=== PATIENT | female | born 1935 | race Caucasian/White ===

== ENCOUNTER 2020-06-13 23:25 | Inpatient (IN) ==
[2020-06-13] MEDS ORDERED: Isovue-370 500 ML BOTTLE IVP ONE (23:39)
[2020-06-14 00:41] LABS: Basophils % 0.2 %; Hematocrit 36.6 % (35.3-44.9); Hemoglobin 12.2 g/dL (11.5-15.4); Immature Granulocytes % 0.4 % (0-4); Lymphocytes % 7.7 %; Mean Corpuscular HGB Conc 33.3 g/dL (31.6-35.5); Mean Corpuscular Hemoglobin 26.9 pg (28.0-33.3); Mean Corpuscular Volume 80.8 fL (83.0-100.0); Mean Platelet Volume 11.7 fL (9.4-12.4); Monocytes # 1.5 K/mcL (0.0-1.3); Monocytes % 11.1 %; Neutrophils # 10.7 K/mcL (1.6-8.9); Platelet Count 286 K/mcL (140-400); Red Blood Count 4.53 M/mcL (3.82-4.97); Red Cell Distribution Width 13.9 % (11.5-14.5); Segmented Neutrophils % 80.6 %; White Blood Count 13.3 K/mcL (4.3-11.1)
[2020-06-14 00:42] LABS: Bacteria,Urine Few per hpf (None-Few); Bilirubin,Urine Negative (Negative); Blood,Urine Moderate (Negative); Clarity,Urine Clear (Clear); Color,Urine Yellow (Yellow); Glucose,Urine (UA) Normal (Normal); Ketones,Urine 20 mg/dL (Negative); Leukocyte Esterase,Urine Small (Negative); Mucus,Urine Few per lpf (None-Few); Nitrite,Urine Negative (Negative); PH,Urine 5.5 pH Units (5.0-8.0); Protein,Urine Trace mg/dL (Neg-Trace); RBC,Urine 30-50 per hpf (0-3); Specific Gravity,Urine 1.027 (1.010-1.025); Squamous Epithelial Cell,Urine Few per hpf (None-Few)
[2020-06-14 01:04] LABS: Alanine Aminotransferase 13 Units/L (7-52); Albumin 3.4 g/dL (3.5-5.7); Albumin/Globulin Ratio 0.8 (1.1-2.2); Alkaline Phosphatase 103 Units/L (34-104); Aspartate Amino Transferase 18 Units/L (13-39); BUN/Creatinine Ratio 33 (6-26); Bilirubin,Direct 0.2 mg/dL (0.0-0.2); Bilirubin,Indirect 0.6 mg/dL (0.0-1.0); Bilirubin,Total 0.8 mg/dL (0.3-1.0); Blood Urea Nitrogen 28 mg/dL (8-23); Calcium 9.2 mg/dL (8.6-10.3); Carbon Dioxide 23 mEq/L (23-29); Chloride 102 mEq/L (98-107); Globulin 4.4 g/dL (2.4-3.5); Glucose 125 mg/dL (70-105); Lipase 21 Units/L (11-82); Osmolality,Calculated 297 (280-300); Potassium 3.5 mEq/L (3.5-5.1); Sodium 140 mEq/L (136-145); Total Protein 7.8 g/dL (6.4-8.9); Troponin I < 0.03 ng/mL (< 0.04); eGFR For African Americans > 60 (> 60); eGFR For Non-African Americans > 60 (> 60)
[2020-06-14] MEDS ORDERED: cefTRIAXone 1,000 MG in 0.9 % Sodium Chloride Mini Bag 100 ML IVPB ONE (01:05)
[2020-06-14] MEDS ORDERED: 0.9 % Sodium Chloride 1,000 ML IVC ONE (01:59)
[2020-06-14] MEDS ORDERED: Naloxone 0.4 MG/ML INJ IVP PRN (04:17)
[2020-06-14] MEDS ORDERED: Ondansetron 4 MG/2 ML VIAL IVP PRN (04:17)
[2020-06-14] MEDS ORDERED: 0.9 % Sodium Chloride 1,000 ML IVC SCH (04:30)
[2020-06-14] MEDS ORDERED: Albuterol 2.5 MG/3 ML NEBULIZER IH PRN (11:33)
[2020-06-14] MEDS: Aspirin Enteric Coated 81 MG Tablet PO SCH (12:35)
[2020-06-14] MEDS ORDERED: Haloperidol Lactate 5 MG/ML VIAL IM ONE (14:01)
[2020-06-14] MEDS: Pregabalin 75 MG CAPSULE PO SCH ×2 (16:05→21:46)
[2020-06-15] MEDS: Folic Acid 1 MG TABLET PO SCH (08:06)
[2020-06-15] MEDS: Aspirin Enteric Coated 81 MG Tablet PO SCH (08:06)
[2020-06-15] MEDS: Pregabalin 75 MG CAPSULE PO SCH ×4 (08:07→20:41)
[2020-06-15 08:58] LABS: Mean Corpuscular HGB Conc 32.4 g/dL (31.6-35.5); Mean Corpuscular Hemoglobin 26.8 pg (28.0-33.3); Mean Corpuscular Volume 82.8 fL (83.0-100.0); Mean Platelet Volume 10.8 fL (9.4-12.4); Platelet Count 260 K/mcL (140-400); Red Blood Count 4.47 M/mcL (3.82-4.97); Red Cell Distribution Width 14.2 % (11.5-14.5); White Blood Count 8.6 K/mcL (4.3-11.1)
[2020-06-15] MEDS ORDERED: cefTRIAXone 1,000 MG in 0.9 % Sodium Chloride Mini Bag 100 ML IVPB SCH (09:00)
[2020-06-15] MEDS ORDERED: *HR* Metoprolol 5 MG/5 ML VIAL IVP ONE (09:09)
[2020-06-15 09:16] LABS: BUN/Creatinine Ratio 27 (6-26); Blood Urea Nitrogen 20 mg/dL (8-23); Calcium 8.9 mg/dL (8.6-10.3); Carbon Dioxide 25 mEq/L (23-29); Chloride 107 mEq/L (98-107); Glucose 95 mg/dL (70-105); Magnesium 1.8 mg/dL (1.6-2.6); Osmolality,Calculated 298 (280-300); Phosphorous 3.3 mg/dL (2.7-4.5); Potassium 3.1 mEq/L (3.5-5.1); Sodium 143 mEq/L (136-145); eGFR For African Americans > 60 (> 60); eGFR For Non-African Americans > 60 (> 60)
[2020-06-15] MEDS ORDERED: Potassium Chloride 20 MEQ, Lidocaine 1% 2 ML in 0.9 % Sodium Chloride 250 ML IVPB ONE (09:17)
[2020-06-15] MEDS: cefTRIAXone 1,000 MG in 0.9 % Sodium Chloride Mini Bag 100 ML IVP SCH (09:42)
[2020-06-15] MEDS ORDERED: Haloperidol Lactate 5 MG/ML VIAL IM ONE ×2 (10:48→14:25)
[2020-06-16 05:35] LABS: Basophils % 0.5 %; Eosinophils % 0.2 %; Hemoglobin 11.6 g/dL (11.5-15.4); Immature Granulocytes % 0.8 % (0-4); Lymphocytes # 1.1 K/mcL (0.6-4.6); Lymphocytes % 12.8 %; Mean Corpuscular HGB Conc 31.4 g/dL (31.6-35.5); Mean Corpuscular Hemoglobin 25.9 pg (28.0-33.3); Mean Corpuscular Volume 82.6 fL (83.0-100.0); Mean Platelet Volume 11.1 fL (9.4-12.4); Monocytes % 11.6 %; Neutrophils # 6.3 K/mcL (1.6-8.9); Platelet Count 277 K/mcL (140-400); Red Blood Count 4.48 M/mcL (3.82-4.97); Red Cell Distribution Width 14.2 % (11.5-14.5); Segmented Neutrophils % 74.1 %; White Blood Count 8.5 K/mcL (4.3-11.1)
[2020-06-16 05:49] LABS: BUN/Creatinine Ratio 29 (6-26); Blood Urea Nitrogen 23 mg/dL (8-23); Calcium 9.2 mg/dL (8.6-10.3); Carbon Dioxide 23 mEq/L (23-29); Chloride 108 mEq/L (98-107); Glucose 100 mg/dL (70-105); Osmolality,Calculated 302 (280-300); Potassium 3.3 mEq/L (3.5-5.1); Sodium 144 mEq/L (136-145); eGFR For African Americans > 60 (> 60); eGFR For Non-African Americans > 60 (> 60)
[2020-06-16 05:50] LABS: Magnesium 1.8 mg/dL (1.6-2.6); Phosphorous 3.5 mg/dL (2.7-4.5)
[2020-06-16 06:00] LABS: Thyroid Stimulating Hormone 2.484 mcIU/mL (0.340-5.600)
[2020-06-16 06:15] LABS: Folate > 22.3 ng/mL (3.0-16.0); Vitamin B12 981 pg/mL (250-1100)
[2020-06-16] MEDS ORDERED: Potassium Chloride 20 MEQ, Lidocaine 1% 2 ML in 0.9 % Sodium Chloride 250 ML IVPB ONE (08:33)
[2020-06-16] MEDS: Aspirin Enteric Coated 81 MG Tablet PO SCH (09:59)
[2020-06-16] MEDS: Pregabalin 75 MG CAPSULE PO SCH ×3 (09:59→20:45)
[2020-06-16] MEDS: Folic Acid 1 MG TABLET PO SCH (09:59)
[2020-06-16] MEDS: cefTRIAXone 1,000 MG in 0.9 % Sodium Chloride Mini Bag 100 ML IVP SCH (10:00)
[2020-06-16] MEDS ORDERED: Gadolinium Contrast Agent (WT Based) IV PRN (11:03)
[2020-06-16] MEDS ORDERED: Haloperidol Lactate 5 MG/ML VIAL IM ONE (13:28)
[2020-06-17] MEDS: Pregabalin 75 MG CAPSULE PO SCH ×3 (10:01→20:03)
[2020-06-17] MEDS: lisinopriL 20 MG TABLET PO SCH (10:02)
[2020-06-17] MEDS: Aspirin Enteric Coated 81 MG Tablet PO SCH (10:02)
[2020-06-17] MEDS: Folic Acid 1 MG TABLET PO SCH (10:02)
[2020-06-17 10:53] LABS: BUN/Creatinine Ratio 34 (6-26); Blood Urea Nitrogen 25 mg/dL (8-23); Calcium 9.2 mg/dL (8.6-10.3); Carbon Dioxide 23 mEq/L (23-29); Chloride 108 mEq/L (98-107); Glucose 113 mg/dL (70-105); Magnesium 1.9 mg/dL (1.6-2.6); Osmolality,Calculated 303 (280-300); Potassium 3.4 mEq/L (3.5-5.1); Sodium 144 mEq/L (136-145); eGFR For African Americans > 60 (> 60); eGFR For Non-African Americans > 60 (> 60)
[2020-06-18] MEDS ORDERED: Acetaminophen 325 MG TABLET PO PRN (07:30)
[2020-06-18] MEDS: lisinopriL 20 MG TABLET PO SCH (07:41)
[2020-06-18] MEDS: Pregabalin 75 MG CAPSULE PO SCH (07:44)
[2020-06-18] MEDS: Aspirin Enteric Coated 81 MG Tablet PO SCH (07:50)
[2020-06-18] MEDS: Folic Acid 1 MG TABLET PO SCH (07:55)
[2020-06-18 07:58] LABS: Hematocrit 40.4 % (35.3-44.9); Hemoglobin 13.1 g/dL (11.5-15.4); Mean Corpuscular HGB Conc 32.4 g/dL (31.6-35.5); Mean Corpuscular Hemoglobin 26.3 pg (28.0-33.3); Mean Corpuscular Volume 81.1 fL (83.0-100.0); Mean Platelet Volume 10.7 fL (9.4-12.4); Platelet Count 279 K/mcL (140-400); Red Blood Count 4.98 M/mcL (3.82-4.97); Red Cell Distribution Width 14.6 % (11.5-14.5); White Blood Count 11.4 K/mcL (4.3-11.1)
[2020-06-18 08:14] LABS: BUN/Creatinine Ratio 38 (6-26); Blood Urea Nitrogen 28 mg/dL (8-23); Calcium 9.4 mg/dL (8.6-10.3); Carbon Dioxide 23 mEq/L (23-29); Chloride 106 mEq/L (98-107); Glucose 113 mg/dL (70-105); Osmolality,Calculated 300 (280-300); Potassium 3.5 mEq/L (3.5-5.1); Sodium 142 mEq/L (136-145); eGFR For African Americans > 60 (> 60); eGFR For Non-African Americans > 60 (> 60)
[2020-06-18 11:12] VITALS: BP 162/94
[2020-06-18 12:28] LABS: Adenovirus Not Detected (Not Detect); Bordetella Pertussis Not Detected (Not Detect); Chlamydophila pneumoniae Not Detected (Not Detect); Coronavirus 229E Not Detected (Not Detect); Coronavirus HKU1 Not Detected (Not Detect); Coronavirus NL63 Not Detected (Not Detect); Coronavirus OC43 Not Detected (Not Detect); Human Metapneumovirus Not Detected (Not Detect); Human Rhinovirus/Enterovirus Not Detected (Not Detect); Influenza A Subtype 2009 H1 Not Detected (Not Detect); Influenza B Not Detected (Not Detect); Mycoplasma pneumoniae Not Detected (Not Detect); Parainfluenza Virus 1 Not Detected (Not Detect); Parainfluenza Virus 2 Not Detected (Not Detect); Parainfluenza Virus 3 Not Detected (Not Detect); Parainfluenza Virus 4 Not Detected (Not Detect); Respiratory Syncytial Virus Not Detected (Not Detect); SARS-CoV-2 Not Detected (Not Detect)
== END 2020-06-18 13:58 | DRG 56 ==
LOC: 3BNU 23:25 → EMEROOARM 23:25 → SUATTDRO 06-14 03:08 → 3BNU 06-14 03:40
PROVIDERS: ADMIT Family Medicine; ATTEND Internal Medicine

== ENCOUNTER 2020-06-19 13:04 | Observation (INO) ==
[2020-06-19] MEDS ORDERED: Ondansetron 4 MG/2 ML VIAL IVP ONE (13:08)
[2020-06-19] MEDS ORDERED: 0.9 % Sodium Chloride 1,000 ML IVC ONE ×2 (13:08→14:34)
[2020-06-19 13:48] LABS: Basophils # 0.1 K/mcL (0.0-0.2); Basophils % 0.6 %; Eosinophils # 0.1 K/mcL (0.0-0.6); Eosinophils % 0.7 %; Hematocrit 43.3 % (35.3-44.9); Hemoglobin 13.7 g/dL (11.5-15.4); Immature Granulocytes % 1.4 % (0-4); Lymphocytes # 1.6 K/mcL (0.6-4.6); Lymphocytes % 10.9 %; Mean Corpuscular HGB Conc 31.6 g/dL (31.6-35.5); Mean Corpuscular Hemoglobin 26.1 pg (28.0-33.3); Mean Corpuscular Volume 82.5 fL (83.0-100.0); Mean Platelet Volume 11.3 fL (9.4-12.4); Monocytes # 1.1 K/mcL (0.0-1.3); Monocytes % 7.3 %; Neutrophils # 11.4 K/mcL (1.6-8.9); Platelet Count 285 K/mcL (140-400); Red Blood Count 5.25 M/mcL (3.82-4.97); Red Cell Distribution Width 14.9 % (11.5-14.5); Segmented Neutrophils % 79.1 %; White Blood Count 14.4 K/mcL (4.3-11.1)
[2020-06-19 13:55] LABS: INR 1.5; Prothrombin Time 16.7 Seconds (9.4-12.1)
[2020-06-19 14:05] LABS: Bilirubin,Urine Negative (Negative); Blood,Urine Negative (Negative); Clarity,Urine Turbid (Clear); Color,Urine Yellow (Yellow); Glucose,Urine (UA) Normal (Normal); Ketones,Urine Negative (Negative); Leukocyte Esterase,Urine Negative (Negative); Nitrite,Urine Negative (Negative); Protein,Urine Trace mg/dL (Neg-Trace); Specific Gravity,Urine 1.023 (1.010-1.025)
[2020-06-19 14:06] LABS: Bacteria,Urine Few per hpf (None-Few); Hyaline Casts,Urine Few per lpf (None Seen); Mucus,Urine Few per lpf (None-Few); Squamous Epithelial Cell,Urine Few per hpf (None-Few); WBC,Urine 0-3 per hpf (0-3)
[2020-06-19 14:08] LABS: Albumin 3.4 g/dL (3.5-5.7); Albumin/Globulin Ratio 0.9 (1.1-2.2); Bilirubin,Direct 0.2 mg/dL (0.0-0.2); Bilirubin,Indirect 0.4 mg/dL (0.0-1.0); Bilirubin,Total 0.6 mg/dL (0.3-1.0); Calcium 9.5 mg/dL (8.6-10.3); Magnesium 2.2 mg/dL (1.6-2.6); Potassium 3.7 mEq/L (3.5-5.1); Total Protein 7.4 g/dL (6.4-8.9)
[2020-06-19 14:09] LABS: Troponin I 0.03 ng/mL (< 0.04)
[2020-06-19] MEDS ORDERED: Mag Hydrox/Al Hydrox/Simeth 30 ML UDC PO PRN (14:57)
[2020-06-19] MEDS ORDERED: Acetaminophen 325 MG TABLET PO PRN (14:57)
[2020-06-19] MEDS ORDERED: Ondansetron 4 MG/2 ML VIAL IVP PRN (14:57)
[2020-06-19] MEDS ORDERED: Naloxone 0.4 MG/ML INJ IVP PRN (14:57)
[2020-06-19] MEDS ORDERED: MOM Conc 10 ML UD.LIQ PO PRN (14:57)
[2020-06-19] MEDS ORDERED: *HR* Atropine Sulfate 1 MG/10 ML SYRINGE IVP ONE (17:12)
[2020-06-19] MEDS: 0.45 % Sodium Chloride w/KCl 20 MEQ/1,000 ML MLS IVC SCH (21:42)
[2020-06-19] MEDS: *HR* Heparin 5,000 UNIT/ML VIAL SQ SCH (21:43)
[2020-06-19] MEDS ORDERED: Albuterol 2.5 MG/3 ML NEBULIZER IH PRN (23:00)
[2020-06-20 04:26] LABS: Basophils # 0.1 K/mcL (0.0-0.2); Basophils % 0.4 %; Eosinophils # 0.1 K/mcL (0.0-0.6); Eosinophils % 0.4 %; Hematocrit 39.6 % (35.3-44.9); Hemoglobin 12.3 g/dL (11.5-15.4); Immature Granulocytes % 1.2 % (0-4); Lymphocytes # 1.3 K/mcL (0.6-4.6); Mean Corpuscular HGB Conc 31.1 g/dL (31.6-35.5); Mean Corpuscular Hemoglobin 26.7 pg (28.0-33.3); Mean Corpuscular Volume 86.1 fL (83.0-100.0); Mean Platelet Volume 11.9 fL (9.4-12.4); Monocytes # 1.3 K/mcL (0.0-1.3); Monocytes % 9.8 %; Neutrophils # 10.5 K/mcL (1.6-8.9); Platelet Count 214 K/mcL (140-400); Segmented Neutrophils % 78.2 %; White Blood Count 13.4 K/mcL (4.3-11.1)
[2020-06-20 04:39] LABS: Calcium 8.4 mg/dL (8.6-10.3); Potassium 3.7 mEq/L (3.5-5.1)
[2020-06-20] MEDS: *HR* Heparin 5,000 UNIT/ML VIAL SQ SCH ×2 (05:46→17:16)
[2020-06-20] MEDS: 0.45 % Sodium Chloride w/KCl 20 MEQ/1,000 ML MLS IVC SCH ×2 (09:18→19:30)
[2020-06-20] MEDS: Folic Acid 1 MG TABLET PO SCH (09:19)
[2020-06-20] MEDS: Aspirin Enteric Coated 81 MG Tablet PO SCH (09:19)
[2020-06-21] MEDS: 0.45 % Sodium Chloride w/KCl 20 MEQ/1,000 ML MLS IVC SCH (05:11)
[2020-06-21] MEDS: *HR* Heparin 5,000 UNIT/ML VIAL SQ SCH (05:12)
[2020-06-21 07:52] LABS: Hematocrit 33.6 % (35.3-44.9); Hemoglobin 10.8 g/dL (11.5-15.4); Mean Corpuscular HGB Conc 32.1 g/dL (31.6-35.5); Mean Corpuscular Hemoglobin 26.6 pg (28.0-33.3); Mean Corpuscular Volume 82.8 fL (83.0-100.0); Mean Platelet Volume 11.2 fL (9.4-12.4); Platelet Count 188 K/mcL (140-400); Red Blood Count 4.06 M/mcL (3.82-4.97); White Blood Count 10.2 K/mcL (4.3-11.1)
[2020-06-21 08:18] LABS: BUN/Creatinine Ratio 32 (6-26); Blood Urea Nitrogen 27 mg/dL (8-23); Calcium 8.2 mg/dL (8.6-10.3); Carbon Dioxide 22 mEq/L (23-29); Chloride 109 mEq/L (98-107); Glucose 94 mg/dL (70-105); Osmolality,Calculated 289 (280-300); Potassium 3.8 mEq/L (3.5-5.1); Sodium 137 mEq/L (136-145); eGFR For African Americans > 60 (> 60); eGFR For Non-African Americans > 60 (> 60)
[2020-06-21] MEDS: Folic Acid 1 MG TABLET PO SCH (09:07)
[2020-06-21] MEDS: Aspirin Enteric Coated 81 MG Tablet PO SCH (09:07)
[2020-06-21 15:06] VITALS: BP 131/84
== END 2020-06-21 17:40 | disposition hospice, inpatient (51) ==
LOC: EMEROOARM 13:04 → 2ANU 13:04 → 3BNU 18:59
PROVIDERS: ADMIT Internal Medicine; ATTEND Internal Medicine